=== PATIENT | female | born 1995 | race Caucasian/White ===

== ENCOUNTER 2019-08-18 13:47 | Emergency (ER) | payer MEDICAID, SELFPAY ==
[2019-08-18 14:10] VITALS: BP 123/68; PULSE 86; RESP 19; TEMP 36.9; O2SAT 98; BMI 24.3
--- NOTE | 2019-08-18 14:31 | HMH.EDUTC ---
[facility] [place] Disposition Clinical Impression: UTI (urinary tract infection) Qualifiers: Urinary tract infection type: site unspecified Hematuria presence: with hematuria Qualified Code(s): N39.0 - Urinary tract infection, site not specified Disposition: Home, Self-Care Condition on Discharge: Good Instructions: Trimethoprim/Sulfamethoxazole (Alternative Therapy), Urinary Tract Infection, DI for Urinary Tract Infection (UTI) Additional Instructions: *Increase fluids. Water not Soda or Tea *Start antibiotic immediately and be sure to take as ordered for the FULL length of time although you should start to see improvement over the next 48 hours *Pyridium as needed Remember this medication will turn your urine [place]. This is normal but it will stain what ever it gets on *You should not use Pyridium for more than 48 hours. If so , follow up with your primary physician to review urine culture and ensure that antibiotic is adequate for infection *Be SURE to follow up anytime for new or worsening symptoms with your family doctor. AND in 48 hours for urine culture results with your family doctor, if you do not have a doctor then you may call back to the [facility] for urine culture results and further treatment. We do recommend that you choose and establish care with a Primary Care Physician. AND follow up with them in 10-14 days to repeat UA to ensure infection is resolved and blood no longer present *Be sure to let your PCP know that we sent urine cultures from the [facility] so they can follow up to ensure that you area the on the correct antibiotic Call your doctor office and make appointment for 48 hours (2 days from today) to follow up and get the results of your urine culture and further treatment Return if needed Straight to ER if any life threatening symptoms Prescriptions: Sulfamethoxazole/Trimethoprim [Bactrim DS tablet] 1 each PO BID 10 Days #20 tab Transmission Status: Received by [facility] # Phenazopyridine HCl [Pyridium 200mg Tablet] 200 pow PO TID #6 tab Transmission Status: Received by [facility] # Referrals: Sumaya Jackson [Primary Care Provider] - As needed Time of Disposition: 14:40 Medical Decision Making - Dalton Inquiry Pt receiving controlled substance: No Dalton was queried for this patient: No Vital Signs: 08/18/19 14:10 08/18/19 14:50 Temperature 98.4 F 98.4 F Temperature Source Oral Pulse Rate 86 Pulse Rate [Right Brachial] 86 Respiratory Rate 19 19 Blood Pressure 123/68 Blood Pressure [Right Arm] 123/68 Blood Pressure Mean [Right Arm] 86 Blood Pressure Source [Right Arm] Automatic Cuff Blood Pressure Position [Right Arm] Sitting 02 Sat by Pulse Oximetry 98 Oxygen Delivery Method Room Air - Lab Data Lab results reviewed: Yes: I reviewed the patient's lab results. Lab Results 08/18/19 14:01: Urine Color Dark yellow, Urine Appearance Cloudy, Urine pH 7.5, Ur Specific [place] 1.020, Urine Protein 3+, Urine Glucose (UA) Negative, Urine Ketones Negative, Urine Blood 3+, Urine Nitrate Negative, Urine Bilirubin Negative, Urine Urobilinogen 4, Ur Leukocyte Esterase Trace Orders (Tests/Meds): ED MEDICATIONS Discontinued Medications Generic Name Dose Route Start Last Admin Trade Name Freq PRN Reason Stop Dose Admin Ceftriaxone Sodium 1 gm 08/18/19 14:36 08/18/19 14:45 Rocephin 1gm Vial IM 08/18/19 14:37 1 gm ONCE ONE Administration Protocol Lidocaine HCl 0 ml 08/18/19 14:36 08/18/19 14:45 Lidocaine 1% 10ml Mdv IM 08/18/19 14:37 2.1 ml ONCE ONE Administration ORDERS Category Date Time Status Urine Culture Stat Micro 08/18/19 14:30 Received Medical Decision Narrative: discussed with patient that we could transfer her to the ED for further evaluation for blood in her urine and ct scan to rule out kidney stone and patient declined [facility] [place] HPI - General Stated complaint: blood in urine Time Seen by Provider: 08/18/19 14:31 Mod
[2019-08-18 14:50] VITALS: BP 123/68; PULSE 86; RESP 19; TEMP 36.9; O2SAT 98
[2019-08-18 14:58] LABS: Apearance,Urine Cloudy (Clear); Bilirubin,Urine Negative (Negative); Blood, Urine 3+ (Negative); Color,Urine Dark Yellow (Yellow); Glucose,Urine (UA) Negative (Negative); Ketones,Urine Negative (Negative); PH,Urine 7.5 (5.0-8.5); Protein,Urine 3+ (Negative)
[2019-08-18 14:59] LABS: UTC Leukocyte Esterase,Urine Trace (Negative); UTC Nitrate,Urine Negative (Negative); Urobilinogen,Urine 4 EU/dl (0.2)
== END 2019-08-18 14:55 | disposition home or self-care (01) ==
PROVIDERS: Emergency Provider Nurse Practitioner; PCP Nurse Practitioner Family
DX: N30.01 Acute cystitis with hematuria (principal); F17.210 Nicotine dependence, cigarettes, uncomplicated
CPT/HCPCS: 81003; 87086; 87088; 87186; 96372; 99202

== ENCOUNTER 2020-01-30 19:18 | Emergency (ER) | payer MEDICAID, SELFPAY ==
[2020-01-30 19:30] VITALS: BP 124/75; PULSE 69; RESP 20; TEMP 36.6; O2SAT 96; BMI 26.6
--- NOTE | 2020-01-30 20:01 | HMH.EDUTC ---
[facility] [place] Impression: Exposure to COVID-19 virus Disposition: Home, Self-Care Condition on Discharge: Good Instructions: Preventing the Spread of Coronavirus Discharge Instructions Additional Instructions: Drink plenty of fluids. Take tylenol for pain or fever. Return if you begin to have difficulty breathing. Follow up with your regular doctor. GO TO THE ER FOR ANY WORSENING SYMPTOMS Referrals: Sumaya Jackson [Primary Care Provider] - Time of Disposition: 20:02 Medical Decision Making - Medical Records Medical records reviewed: No: I reviewed the patient's medical records. - Dalton Inquiry Pt receiving controlled substance: No Vital Signs: 01/30/20 19:30 01/30/20 20:08 Temperature 97.8 F 97.8 F Temperature Source Oral Pulse Rate 69 Pulse Rate [Right Brachial] 69 Respiratory Rate 20 20 Blood Pressure 124/75 Blood Pressure [Right Arm] 124/75 Blood Pressure Mean [Right Arm] 91 Blood Pressure Source [Right Arm] Automatic Cuff Blood Pressure Position [Right Arm] Sitting 02 Sat by Pulse Oximetry 96 Oxygen Delivery Method Room Air Orders (Tests/Meds): ORDERS Category Date Time Status Covid-19 Nasal PCR Sendout [facility] Stat Lab 01/30/20 19:25 [place]ceived [facility] [place] - General Stated complaint: covid exposure Time Seen by Provider: 01/30/20 20:01 Mode of Arrival: Ambulatory Source of Information: Patient Limitations: No Limitations Description of Symptoms (Recalled from Triage Doc. by RN): PATIENT REQUESTING COVID TEST D/T EXPOSURE; DENIES SYMPTOMS HEENT Symptoms (Recalled from RN notes): No Resp Symptoms (Recalled from RN notes): No Skin Symptoms (Recalled from RN notes): No MS Symptoms (Recalled from RN notes): No Functional Status (Recalled from RN notes): WNL - History of Present Illness Provider Complaint: She denies any symptoms, but she has been exposed to covid at her work. - Related Data Home Medications Medication Instructions Recorded Confirmed Buprenorphine HCl/Naloxone HCl 1 each SL BID 08/18/19 01/30/20 [Buprenorphin-Naloxon 8-2 mg Sl] Venlafaxine HCl [Effexor XR 75mg 75 mg PO DAILY 08/18/19 01/30/20 capsule] Allergies Allergy/AdvReac Type Severity Reaction Status Date / Time No Known Allergies Allergy Verified 04/10/19 20:29 - Worker's Comp Is this a Worker's Comp case?: No [facility] History - Hepatitis A Screen Drug use history?: No High risk sexual behaviors?: No History of sexually transmitted infection?: No Currently employed?: No Childcare worker?: No Do you have indoor plumbing?: Yes Do you have electricity?: Yes Attestation statement:: This patient has been screened for Hepatitis A risk factors. I have reviewed the patient's past medical history: Yes - Social History Smoking Status: Current every day smoker Tobacco Type: cigarettes # Packs/Day (cigarettes): 1 Alcohol Intake: never Substance Use Type: unknown Occupational Status: other ROS Obtained: Yes All systems reviewed & no additional complaints - Constitutional Constitutional: Reports system reviewed and no additional complaints, except as docu - Eyes Eyes: Reports system reviewed and no additional complaints, except as docu - ENT Ears, Nose, Mouth, and Throat: Reports system reviewed and no additional complaints, except as docu - Cardiovascular Cardiovascular: Reports system reviewed and no additional complaints, except as docu - Respiratory Respiratory: Yes system reviewed and no additional complaints, except as docu - Gastrointestinal Gastrointestingal: Reports: system reviewed and no additional complaints, except as docu Physical Exam - General General appearance: alert, in no apparent distress - Head Head exam: atraumatic, normocephalic, normal inspection - Eye Eye exam: Present: normal appearance, PERRL, EOMI - ENT ENT exam: Present: normal exam, normal oropharynx, mucous membranes moist, TM's normal bilaterally, n
[2020-01-30 20:08] VITALS: BP 124/75; PULSE 69; RESP 20; TEMP 36.6; O2SAT 96
[2020-02-01 15:41] LABS: Covid-19 Nasal PCR Sendout Lex Not Detected
== END 2020-01-30 20:10 | disposition home or self-care (01) ==
PROVIDERS: Emergency Provider Nurse Practitioner Family; PCP Nurse Practitioner Family
DX: Z20.828 Contact with and (suspected) exposure to other viral communicable diseases (principal); F17.210 Nicotine dependence, cigarettes, uncomplicated
CPT/HCPCS: 99201; U0004

== ENCOUNTER 2020-03-15 17:19 | Emergency (ER) | payer MEDICAID, SELFPAY ==
[2020-03-15 18:30] VITALS: BP 136/56; PULSE 74; RESP 20; TEMP 36.9; O2SAT 99; BMI 25.8
--- NOTE | 2020-03-15 19:02 | HMH.EDUTC ---
[facility] [place] Clinical Impression: UTI (urinary tract infection) Qualifiers: Urinary tract infection type: site unspecified Hematuria presence: with hematuria Qualified Code(s): N39.0 - Urinary tract infection, site not specified Disposition: Home, Self-Care Condition on Discharge: Good Instructions: Trimethoprim/Sulfamethoxazole (Alternative Therapy), Urinary Tract Infection, DI for Urinary Tract Infection (UTI) Additional Instructions: *Increase fluids. Water not Soda or Tea *Start antibiotic immediately and be sure to take as ordered for the FULL length of time although you should start to see improvement over the next 48 hours *Pyridium as needed Remember this medication will turn your urine [place]. This is normal but it will stain what ever it gets on *You should not use Pyridium for more than 48 hours. If so , follow up with your primary physician to review urine culture and ensure that antibiotic is adequate for infection *Be SURE to follow up anytime for new or worsening symptoms with your family doctor. AND in 48 hours for urine culture results with your family doctor, if you do not have a doctor then you may call back to the [facility] for urine culture results and further treatment. We do recommend that you choose and establish care with a Primary Care Physician. AND follow up with them in 10-14 days to repeat UA to ensure infection is resolved and blood no longer present *Be sure to let your PCP know that we sent urine cultures from the [facility] so they can follow up to ensure that you area the on the correct antibiotic Call your doctor office and make appointment for 48 hours (2 days from today) to follow up and get the results of your urine culture and further treatment Make sure to follow up for your urine culture and follow up with Your PCP for blood in urine Straight to ER if any life threatening symptoms Prescriptions: Sulfamethoxazole/Trimethoprim [Bactrim DS tablet] 1 each PO BID 10 Days #20 tab Transmission Status: Received by [facility] #[id number] Phenazopyridine HCl [Pyridium 200mg Tablet] 200 pow PO TID #6 tab Transmission Status: Received by [facility] #[id number] Referrals: Sumaya Jackson [Primary Care Provider] - As needed Time of Disposition: 19:09 Medical Decision Making - Dalton Inquiry Pt receiving controlled substance: No Dalton was queried for this patient: No Vital Signs: 03/15/20 18:30 Temperature 98.4 F Temperature Source Oral Pulse Rate [Right Brachial] 74 Respiratory Rate 20 Blood Pressure [Right Arm] 136/56 L Blood Pressure Mean [Right Arm] 82 Blood Pressure Source [Right Arm] Automatic Cuff Blood Pressure Position [Right Arm] Sitting 02 Sat by Pulse Oximetry 99 Oxygen Delivery Method Room Air - Lab Data Lab results reviewed: Yes: I reviewed the patient's lab results. Orders (Tests/Meds): ED MEDICATIONS Discontinued Medications Generic Name Dose Route Start Last Admin Trade Name Ruslan PRN Reason Stop Dose Admin Ceftriaxone Sodium 1 gm 03/15/20 19:06 03/15/20 19:20 Ceftriaxone 1gm Vial IM 03/15/20 19:07 1 gm ONCE ONE Administration Protocol Lidocaine HCl 0 ml 03/15/20 19:06 03/15/20 19:20 Lidocaine 1% 5ml Pf Vial IM 03/15/20 19:07 2.1 ml ONCE ONE Administration Medical Decision Narrative: Patient denies history of Kidney stones discussed transfer to the ED and patient declined states that she gets hematuria with UTI and would return if it got worse [facility] [place] HPI - General Stated complaint: pain with voiding Time Seen by Provider: 03/15/20 19:02 Mode of Arrival: Ambulatory Source of Information: Patient Limitations: No Limitations Description of Symptoms (Recalled from Triage Doc. by RN): PATIENT C/O PAINFUL URINATION AND HEMATURIA X 4 DAYS HEENT Symptoms (Recalled from RN notes): No Resp Symptoms (Recalled from RN notes): No Skin Symptoms (Recalled from RN notes): No MS Symptoms (Recalled from RN notes): No Functional Status (Rec
[2020-03-15 19:26] VITALS: BP 136/56; PULSE 74; RESP 20; TEMP 36.9; O2SAT 99
[2020-03-15 20:47] LABS: Apearance,Urine Clear (Clear); Color,Urine Yellow (Yellow)
[2020-03-15 20:48] LABS: Bilirubin,Urine Negative (Negative); Blood, Urine 3+ (Negative); Glucose,Urine (UA) Negative (Negative); Ketones,Urine Negative (Negative); PH,Urine 7.5 (5.0-8.5); Protein,Urine 1+ (Negative); Specific Gravity, Urine 1.025 (1.005-1.030); UTC Leukocyte Esterase,Urine 1+ (Negative); UTC Nitrate,Urine Negative (Negative); Urobilinogen,Urine 1 EU/dl (0.2)
== END 2020-03-15 19:30 | disposition home or self-care (01) ==
PROVIDERS: Emergency Provider Nurse Practitioner; PCP Nurse Practitioner Family
DX: N30.01 Acute cystitis with hematuria (principal); B96.20 Unspecified Escherichia coli [E. coli] as the cause of diseases classified elsewhere; F17.210 Nicotine dependence, cigarettes, uncomplicated; Z87.442 Personal history of urinary calculi
CPT/HCPCS: 81003; 87086; 87088; 87186; 96372; 99202; G0463

== ENCOUNTER → 2022-07-22 16:00 | Outpatient (CLI) | payer MEDICAID, SELFPAY ==
[2022-07-22 19:30] LABS: Amphetamine/Metha Screen,Urine Negative ng/ml (<1000)
[2022-07-22 19:31] LABS: Barbiturates Screen,Urine Negative ng/ml (<200); Benzodiazepines Screen,Urine Negative ng/ml (<200)
[2022-07-22 19:32] LABS: Cannabinoid Screen,Urine Negative ng/ml (<50)
[2022-07-22 19:33] LABS: Opiate Screen,Urine Negative ng/ml (<300)
[2022-07-22 19:34] LABS: Cocaine Screen,Urine Negative ng/ml (<300); Methadone Screen,Urine Negative ng/ml (<300)
[2022-07-22 19:36] LABS: Phencyclidine Screen,Urine Negative ng/ml (<25)
== END ==
PROVIDERS: PCP Emergency Medicine; Visit Provider Emergency Medicine
DX: Z79.899 Other long term (current) drug therapy (principal)
CPT/HCPCS: 80305

== ENCOUNTER → 2023-01-14 06:32 | Outpatient (CLI) | payer MEDICAID, SELFPAY | PROVIDERS: PCP Emergency Medicine; Visit Provider Emergency Medicine | DX: F41.9 Anxiety disorder, unspecified (principal) ==

== ENCOUNTER 2023-04-10 21:47 | Outpatient (CLI) | payer MEDICAID, SELFPAY ==
[2023-04-10 18:44] LABS: Basophils % 0.6 % (0.1-2.0); Eosinophils # 0.2 K/mm3 (0.0-0.4); Eosinophils % 2.9 % (0.1-12.0); Hemoglobin 12.6 g/dL (12.2-16.2); Lymphocytes # 2.3 K/mm3 (0.7-4.5); Lymphocytes % 39.6 % (10-50); Mean Corpuscular Hemoglobin 29.8 pg (27.0-31.2); Mean Corpuscular Volume 87.7 fl (81-99); Mean Platelet Volume 8.5 fl (7.4-10.4); Monocytes # 0.4 K/mm3 (0.1-1.0); Monocytes % 6.6 % (1.7-9.3); Neutrophils # 2.9 K/mm3 (1.8-7.8); Neutrophils % 50.4 % (37.0-80.0); Platelet Count 223 K/mm3 (142-424); Red Blood Count 4.21 M/mm3 (4.20-5.40); White Blood Count 5.7 K/mm3 (4.8-10.8)
[2023-04-10 19:28] LABS: Alanine Aminotransferase 30 U/L (12-78); Albumin Level 4.5 g/dl (3.5-5.0); Albumin/Globulin Ratio 1.6 (1.1-1.8); Alkaline Phosphatase 53 U/L (38-126); Anion Gap 11.8 mEq/L (5-15); Aspartate Amino Transferase 35 U/L (14-36); Bilirubin,Total 0.2 mg/dl (0.2-1.3); Blood Urea Nitrogen 13 mg/dl (7-17); Calcium 9.2 mg/dl (8.4-10.2); Carbon Dioxide 30 mmol/L (22.0-30.0); Chloride 103 mmol/L (98-107); Cholesterol 155 mg/dl (140-200); Estimated Glomerular Filt Rate 118 ml/min (>60); GFR (African American) 143 ML/MIN (>60); Globulin 2.8 g/dL (1.3-3.2); Glucose 93 mg/dl (74-100); HDL Cholesterol 39 mg/dl (40-60); Potassium 3.8 mmoL/L (3.5-5.1); Sodium 141 mmol/L (136-145); Total Protein,Serum 7.3 g/dl (6.3-8.2); Triglycerides 79 mg/dl (30-150); VLDL Cholesterol 16 mg/dL (0-40)
[2023-04-10 19:39] LABS: Direct LDL Cholesterol 88.02 mg/dL (100-129)
[2023-04-10 19:49] LABS: 25-OH Vitamin D, Total 16.9 ng/mL (30-100)
[2023-04-10 20:01] LABS: Thyroid Stimulating Hormone 2.23 uIU/mL (0.465-4.68)
== END 2023-04-10 23:59 ==
LOC: LAB.DROPOF 21:48
PROVIDERS: PCP Family Medicine; Visit Provider Family Medicine
DX: R53.83 Other fatigue (principal); E55.9 Vitamin D deficiency, unspecified; Z68.29 Body mass index [BMI] 29.0-29.9, adult
CPT/HCPCS: 80053; 80061; 82306; 84443; 85025